=== PATIENT | female | born 1980 | race Caucasian/White ===

== ENCOUNTER 2018-07-27 08:52 | Day surgery (SDC) | payer OTHER ==
[~2018-07-27 08:52] MED LIST: ATENOLOL25 MG PO; PROZAC20 MG PO; ZYRTEC10 MG PO
[2018-07-27] MEDS ORDERED: MOTRIN IB200 MG PO (12:06)
== END 2018-07-27 14:48 | disposition home or self-care (01) ==
LOC: CIR.AMB 08:52 → U 08:52 → CIR.AMB 14:48
DX: Z30.2 Encounter for sterilization (principal)

== ENCOUNTER 2020-07-17 09:15 | Inpatient (IN) | payer OTHER ==
[~2020-07-17] VITALS: Ht 160 cm; Wt 68.0 kg
[~2020-07-17 09:15] MED LIST changes: +MOTRIN IB200 MG PO
[2020-07-26] MEDS ORDERED: KAOPECTATE240 MG PO (09:05)
[2020-07-26] MEDS ORDERED: OXYC1TAB9 PO (09:05)
[2020-07-26] MEDS ORDERED: TYLenol Extra Streng PO (09:05)
== END 2020-07-26 09:55 | disposition home or self-care (01) | DRG 743 ==
LOC: O/R 07-24 06:00 → OB/GYN 07-24 06:00 → SURH 07-24 09:00 → OB/GYN 07-24 10:47
PROVIDERS: ADMIT Obstetrics & Gynecology; ATTEND Obstetrics & Gynecology
PROC: 0UB70ZZ Excision of Bilateral Fallopian Tubes, Open Approach (ICD-10-PCS; 2020-07-24)
PROC: 0US20ZZ Reposition Bilateral Ovaries, Open Approach (ICD-10-PCS; 2020-07-24)
PROC: 0UJD4ZZ Inspection of Uterus and Cervix, Percutaneous Endoscopic Approach (ICD-10-PCS; 2020-07-24)
PROC: 0UJD4ZZ Inspection of Uterus and Cervix, Percutaneous Endoscopic Approach (ICD-10-PCS; 2020-07-24)
PROC: 0UT90ZZ Resection of Uterus, Open Approach (ICD-10-PCS; principal; 2020-07-24 09:00)
DX: N80.0 Endometriosis of uterus (principal); D25.1 Intramural leiomyoma of uterus; D25.2 Subserosal leiomyoma of uterus